=== PATIENT | male | born 1965 | race Caucasian/White ===

== ENCOUNTER 2023-07-31 07:17 | Outpatient (CLI) | payer OTHER, SELFPAY ==
--- NOTE | 2023-07-31 07:45 | MR_ITS ---
[address] [address] Phone:?[phone] Fax:?[phone] Referring Physician Information: Mejia Whittaker M.D. [id number] [facility] [address] Phone:?[phone] Fax:?[phone] Patient:Renan Larson D.O.B:?1965 Sex:?Male Phone:?[phone] [facility] MRN:?[id number] Exam Date:?07/31/2023 EXAM: MRI of the LEFT SHOULDER, without contrast CLINICAL HISTORY: Left shoulder pain. Evaluate for rotator cuff tear. COMPARISONS: Plain radiographs 07/23/2023. TECHNICAL: MRI sequences of the left shoulder: Axials: PD, T2 Coronals: PD, STIR, T2 Sagittals: PD, T2 SEDATION: None CONTRAST: None FINDINGS: Bones: No fracture or suspicious bone marrow signal abnormality. Coracoacromial arch: Acromion: No os acromiale. Type II acromion. Acromiohumeral space: The bony distance is unremarkable. Acromioclavicular joint: No acute injury, arthropathy, or inferior hypertrophy. Coracoclavicular ligament: The coracoclavicular ligament is intact. Rotator cuff muscles/tendons: Supraspinatus: 1.0 x 1.0 cm ill-defined low-grade partial-thickness bursal sided tear of the anterior portion of the supraspinatus tendon insertion. No muscular atrophy. Infraspinatus: The infraspinatus tendon and muscle are intact. Teres minor: The teres minor tendon and muscle are intact. Subscapularis: There is a 2.5 cm in craniocaudad dimension full-thickness tear of the subscapularis tendon insertion with proximal/medial tendon retraction to the level of the glenoid. No muscular atrophy. Labrum and glenohumeral joint: There is ill-defined tear of the labrum from the 3 o'clock position anteriorly through 6 o'clock position inferiorly. Small glenohumeral joint effusion. No discrete chondral defect or subchondral bone marrow edema/cystic change is seen. There is edema-like signal within and thickening of the inferior glenohumeral ligament. There is sprain versus ill-defined low-grade partial tearing of the anterior band of the inferior glenohumeral ligament at the humeral attachment. Proximal biceps tendon, long head and short heads: There is intra-articular medial dislocation of the long head of the biceps tendon from the bicipital groove. The short head is intact. IMPRESSION: 1. 2.5 cm in craniocaudad dimension full-thickness tear of the subscapularis tendon insertion with proximal/medial tendon retraction to the level of the glenoid. 2. Intra-articular medial dislocation of the proximal long head of the biceps tendon from the bicipital groove. 3. 1.0 x 1.0 cm ill-defined low-grade partial-thickness bursal sided tear of the anterior portion of the supraspinatus tendon insertion. 4. No rotator cuff muscular atrophy. 5. Ill-defined labral tear from the 3 o'clock position anteriorly through 6 o'clock position inferiorly. 6. Sprain versus ill-defined low-grade partial tearing of the anterior band of the inferior glenohumeral ligament at the humeral attachment. Edema-like signal and thickening throughout the inferior glenohumeral ligament likely are findings that likely reflect sequelae of inferior glenohumeral ligament injury although adhesive capsulitis cannot be excluded by the imaging appearance. 7. Small glenohumeral joint effusion. RCB Electronically signed on 07/31/2023 9:38:00 AM by Jonny Farris M.D.
== END 2023-07-31 07:18 | disposition home or self-care (01) ==
PROVIDERS: PCP Physician Assistant Medical; Visit Provider Orthopaedic Surgery
DX: M25.512 Pain in left shoulder (principal); S46.912A Strain of unspecified muscle, fascia and tendon at shoulder and upper arm level, left arm, initial encounter; S43.005A Unspecified dislocation of left shoulder joint, initial encounter; S43.492A Other sprain of left shoulder joint, initial encounter; M25.412 Effusion, left shoulder
CPT/HCPCS: 73221

== ENCOUNTER 2023-08-20 10:27 | Outpatient (CLI) | payer OTHER, SELFPAY | END 2023-08-20 10:28 | disposition home or self-care (01) | PROVIDERS: PCP Physician Assistant Medical; Visit Provider Family Medicine | DX: Z01.818 Encounter for other preprocedural examination (principal); I10 Essential (primary) hypertension; Z13.6 Encounter for screening for cardiovascular disorders; Z12.5 Encounter for screening for malignant neoplasm of prostate | CPT/HCPCS: 80048; 80061; G0103 ==

== ENCOUNTER 2023-09-04 07:13 | Day surgery (SDC) | payer OTHER, SELFPAY ==
[2023-09-04] VITALS (18 sets, daily range): BP systolic 111–139; BP diastolic 74–89; PULSE 56–68; RESP 14–18; TEMP 36.1–36.3; O2SAT 91–98; BMI 30.9
[2023-09-04] MEDS: EPINEPHrine 1 MG in SODIUM CHLORIDE IRRIG SOLUTION 3,000 ML 9003 MG IRRIGATION ×2 (07:30→07:50)
[2023-09-04] MEDS: OXYCODONE (CR) 10 MG TAB.ER.12H PO (07:40)
[2023-09-04] MEDS: ACETAMINOPHEN 500 MG TABLET 1000 MG PO (07:40)
[2023-09-04] MEDS: CELECOXIB 200 MG CAPSULE PO (07:40)
[2023-09-04] MEDS: SODIUM CHLORIDE 0.9 % (FLUSH) 10 ML SYRINGE IVF (07:45)
[2023-09-04] MEDS: LACTATED RINGERS 1000 ML 1,000 ML 100 ML IV ×2 (07:45→10:14)
[2023-09-04] MEDS: EPINEPHrine 1 MG in SODIUM CHLORIDE IRRIG SOLUTION 3,000 ML 6000 MG IRRIGATION (08:10)
[2023-09-04] MEDS: fentaNYL 100 MCG/2 ML inj IVP (08:26)
[2023-09-04] MEDS: MIDAZOLAM HCL 1 MG/ML inj IVP (08:26)
--- NOTE | 2023-09-04 08:31 | SUR.PREOP ---
TIME?OUT:?0832 PT/RN/MDA?VERIFICATION?OF?SURGICAL?SITE,?PROCEDURE,?AND?CONSENT OBTAINED?PRIOR?TO?INVASIVE?PROCEDURE.
--- NOTE | 2023-09-04 08:52 | W.PM.NB ---
Nerve Block Nerve Block Time Seen by Provider: 08:34 Date Seen: 09/04/23 Type of block requested by surgeon for post-operative analgesia: supraclavicular Side: left Time out performed: Yes Verification of patient name: Yes Verification of date of : Yes Site marking: site marked Name of person performing procedure: Flynn Continuous monitoring Was continuous monitoring of O2 sat, B/P, color television console monitor, recorded every 15 minutes?: Yes Procedure Checklist: sterile prep, needles and gloves Ultrasound guided. Images saved: Yes Medications given in 5ml increments after negative aspiration: Ropivicaine %: 0.5 mL: 20 Needle gauge: 22 Decadron (mg): 10 Precedex (mcg): 25 Patient tolerated procedure well: Yes Block Charges Block Charge (with Pro Fee): Brachial Plexus Use of Ultrasound Machine for Block: Yes- US Guidance/pain block
--- NOTE | 2023-09-04 08:52 | W.ANESCHARGE ---
Anesthesia Charges Start Date/Time Anesthesia Start Date: 09/04/23 Anesthesia Start Time: 09:05 Stop Date/Time Anesthesia Stop Date: 09/04/23 Anesthesia Stop Time: 11:21
[2023-09-04] MEDS: CEFAZOLIN 2 GM INJ IVP (09:11)
--- NOTE | 2023-09-04 10:52 | PM.ORPRC ---
Procedure Note Date of procedure: 09/04/23 Procedure: PREOPERATIVE DIAGNOSIS: Left shoulder subscap tear, biceps dislocation POSTOPERATIVE DIAGNOSIS: Left shoulder subscap tear, biceps dislocation, high-grade partial-thickness supraspinatus tear NAME OF OPERATION: Left shoulder arthroscopic subacromial decompression, mini open subscap repair, supraspinatus repair, biceps tenodesis SURGEON: Mejia Whittaker MD [employer] APPRENTICE: Anna Marie Bansal PA-C ANESTHESIA: Supraclavicular block plus general endotracheal ESTIMATED BLOOD LOSS: 25 mL COMPLICATIONS: None SPECIMENS: None DRAINS: None PREOPERATIVE ANTIBIOTICS: Ancef 2 grams INDICATIONS: The patient is a 58-year-old with a history of left shoulder pain secondary to the above diagnoses. Despite appropriate non operative management, they continue to have symptoms. Operative intervention was recommended. The risks, benefits and expected outcomes were discussed in detail. These included but were not limited to: Infection, bleeding, injury to blood vessel or nerve, venous thromboembolism. All questions were answered to their satisfaction. PROCEDURE: A supraclavicular block was placed by Anesthesia. General anesthesia was administered. The patient was placed in the high beach chair position. The left shoulder was prepped and draped in the usual sterile fashion. The glenohumeral joint was infiltrated with 20 mL of normal saline with epinephrine. The posterior portal was established, the arthroscope was introduced. The anterior portal was established, Diagnostic arthroscopy was performed with findings as follows: The biceps is dislocated medially. The anterior, posterior and superior labrum are normal. Articular surfaces on the humeral head and glenoid are normal. There are no loose bodies. There is a full-thickness tear of the subscap, without retraction. There is minimal joint surface tendinopathy of the anterior insertion of the supraspinatus. The biceps was tenotomized with the arthroscopic scissors. The stump was debrided with the shaver. The arthroscope was placed in the subacromial space, the lateral portal was established. The Arthrex Sadorus was used to dissect the acromion free. The CA ligament was recessed off the anterior acromion, the AC joint was not exposed. The acromioplasty was performed with the bur in the posterior portal. The bur was then placed in the lateral portal and the lateral and anterior aspect of the acromion were resected. The undersurface of the distal clavicle was resected through the lateral portal. An accessory anterolateral portal was placed. The subacromial/subdeltoid bursa was aggressively debrided. There is a full-thickness tear of the anterior aspect of the supraspinatus, just posterior to the bicipital groove. Arthroscopic instruments were removed. The accessory anterolateral portal was extended proximally and distally, subcutaneous dissection was taken with electrocautery to the deltoid. The deltoid was divided in line with its fibers. The static retractor was placed. The subacromial/subdeltoid bursa was debrided with the Parra scissors. The few remaining fibers of the insertion of the subscap and supraspinatus were released with the scalpel. The tendinopathic cuff was sharply debrided. The greater and lesser tuberosities were debrided to punctate bleeding bone using the arthroscopic bur. A suture tape was placed in an inverted mattress in the subscap. A whipstitch was placed in the biceps. A corkscrew anchor was placed in the greater tuberosity, just posterior to the bicipital groove. All 4 limbs of the suture on the corkscrew were passed through supraspinatus. The suture in subscap and biceps were placed in a SwiveLock anchor on the proximal, lateral aspect of the lesser tuberosity, medial to the bicipital groove. The sutures on the eyelet were passed through the upper border of the leading edge of the subscap and through the biceps and tied over the top of both completing the subscap repair and biceps tenodesis. Next 4 sutures through the supraspinatus were tied down. Finally, we placed a FiberLink suture in upper border of the leading edge of the subscap and the anterior border of the leading edge of the supraspinatus. These 2 sutures were placed in a SwiveLock anchor over the lateral aspect of the tuberosity, posterior to the bicipital groove. This provides an excellent, watertight repair of the rotator cuff. There is no tension on the repair with the shoulder at 0? abduction. The wound was irrigated with normal saline off the pump. The deltoid was repaired with an 0 Vicryl in an interrupted [id number] fashion. Subcutaneous tissues were closed with a 3-0 Vicryl. Skin was closed with a 3-0 Monocryl in a subcuticular fashion. A dry dressing, polar care and sling were applied. Sponge and needle counts were correct x2. The patient tolerated the procedure well. There were no apparent complications. They were carefully transferred to the hospital bed and taken to the postanesthesia care unit in satisfactory condition. PLAN: The patient will be discharged to home. No active range of motion of the shoulder will be allowed for 6 weeks postoperatively. They can work on active range of motion of the elbow, wrist and fingers. They will follow up in the office next week for a wound check and an AP and transscapular Y-view of the shoulder prior to being seen.
--- NOTE | 2023-09-04 11:22 | W.ANESCHARGE ---
Anesthesia Charges Start Date/Time Anesthesia Start Date: 09/04/23 Anesthesia Start Time: 09:05 Stop Date/Time Anesthesia Stop Date: 09/04/23 Anesthesia Stop Time: 11:21
== END 2023-09-04 13:15 | disposition home or self-care (01) ==
LOC: OR 07:14
PROVIDERS: PCP Physician Assistant Medical; Visit Provider Orthopaedic Surgery
PROC: (CPT 23412; principal; 2023-09-04 09:00)
DX: M75.122 Complete rotator cuff tear or rupture of left shoulder, not specified as traumatic (principal); S46.112A Strain of muscle, fascia and tendon of long head of biceps, left arm, initial encounter; M75.22 Bicipital tendinitis, left shoulder; G89.18 Other acute postprocedural pain
CPT/HCPCS: 29826; 29828; 29822; 23412; 01630; 64415; 76942; A9270; C1713; J0171; J0330; J0690; J1100; J2250; J2405; J2704; J2795; J3010; J7120; L3670

== ENCOUNTER 2023-12-18 14:45 | Outpatient (RCR) | payer OTHER, SELFPAY | END 2024-04-16 23:59 | disposition home or self-care (01) | PROVIDERS: PCP Physician Assistant Medical; Visit Provider Physician Assistant | DX: Z98.890 Other specified postprocedural states (principal); Z51.89 Encounter for other specified aftercare | CPT/HCPCS: 97110; 97140; 97162 ==

== ENCOUNTER 2025-03-09 09:49 | Outpatient (CLI) | payer OTHER, SELFPAY | END 2025-03-09 09:50 | disposition home or self-care (01) | LOC: LKVREF 09:51 | PROVIDERS: PCP Family Medicine; Visit Provider Family Medicine | DX: Z00.00 Encounter for general adult medical examination without abnormal findings (principal); I10 Essential (primary) hypertension | CPT/HCPCS: 80048 ==